=== PATIENT | male | born 1955 | race American Indian/Alaskan Native ===

== ENCOUNTER 2023-02-11 14:06 | Inpatient (IN) ==
[2023-02-11 16:24] LABS: ABS Eosinophils 0.1 10^3/uL (0.0-0.5); ABS Lymphocytes 1.8 10^3/uL (1.0-4.8); ABS Monocytes 0.4 10^3/uL (0.0-1.1); ABS Neutrophils 2.8 10^3/uL (1.5-7.6); ABS Nucleated RBC 0.03 10^3/ul; Eosinophil % 1.1 %; Hematocrit 30.1 % (38-53); Hemoglobin 10.3 g/dL (13.2-16.3); Lymphocyte % 35.5 %; Mean Corpuscular Hemoglobin 31.4 pg (27-33); Mean Corpuscular Hgb Conc 34.1 g/dL (31-36); Mean Platelet Volume 7.8 fL (7.5-11.2); Nucleated Red Blood Cells % 0.5 /100 WBC (0.0-0.4); Platelet Count 139 10^3/uL (150-450); Red Blood Count 3.27 10^6/uL (4.06-5.63); Red Cell Distribution Width 16.1 % (12-17); White Blood Count 4.9 10^3/uL (3.6-10.2)
[2023-02-11 16:28] LABS: Urine Appearance Cloudy; Urine Bilirubin Negative (Negative); Urine Blood Negative (Negative); Urine Color Yellow; Urine Glucose 3+(>=500 mg/dL) (Negative); Urine Ketones Negative (Negative); Urine Nitrite Negative (Negative); Urine Protein Negative (Negative); Urine Specific Gravity 1.021 (1.002-1.030); Urine Urobilinogen Negative (Negative)
[2023-02-11 16:58] LABS: Albumin 3.6 g/dL (3.2-5.2); Albumin/Globulin Ratio 1.1 (1-3); Calcium 9.4 mg/dL (8.6-10.3); Creatinine, Serum 1.51 mg/dL (0.67-1.17); Globulin 3.4 g/dL (2-4); Magnesium 2.3 mg/dL (1.9-2.7); Potassium 4.1 mmol/L (3.5-5.0); Total Bilirubin 0.9 mg/dL (0.2-1.0); eGFR CKD-EPI 49.7 (>60)
[2023-02-11] MEDS ORDERED: Lactated Ringers 1000 ml BAG 1,000 ML IV ONE (19:47)
[2023-02-11] MEDS ORDERED: Iodixanol (CONTRAST) 320 MG/ML 100 ML SDV IV ONE (20:08)
[2023-02-11] MEDS ORDERED: Dextrose 50% Syringe 50 ml 25 GM/50 ML SYRINGE IV PUSH PRN (23:17)
[2023-02-12] MEDS ORDERED: Lactated Ringers 1000 ml BAG 1,000 ML IV ONE (01:55)
[2023-02-12 05:29] LABS: ABS Eosinophils 0.1 10^3/uL (0.0-0.5); ABS Lymphocytes 1.5 10^3/uL (1.0-4.8); ABS Monocytes 0.4 10^3/uL (0.0-1.1); ABS Neutrophils 1.7 10^3/uL (1.5-7.6); ABS Nucleated RBC 0.02 10^3/ul; Eosinophil % 1.5 %; Hematocrit 26.4 % (38-53); Hemoglobin 9.1 g/dL (13.2-16.3); Lymphocyte % 40.4 %; Mean Corpuscular Hemoglobin 31.6 pg (27-33); Mean Corpuscular Hgb Conc 34.4 g/dL (31-36); Mean Corpuscular Volume 91.9 fL (80-97); Mean Platelet Volume 7.7 fL (7.5-11.2); Nucleated Red Blood Cells % 0.5 /100 WBC (0.0-0.4); Platelet Count 121 10^3/uL (150-450); Red Blood Count 2.87 10^6/uL (4.06-5.63); Red Cell Distribution Width 15.8 % (12-17); White Blood Count 3.8 10^3/uL (3.6-10.2)
[2023-02-12 05:43] LABS: Calcium 8.9 mg/dL (8.6-10.3); Creatinine, Serum 1.34 mg/dL (0.67-1.17); Potassium 4.5 mmol/L (3.5-5.0); eGFR CKD-EPI 57.3 (>60)
[2023-02-12] MEDS: Heparin 5000 UNITS/ML 1 mL VIAL SUBCUT SCH ×2 (09:07→20:54)
[2023-02-12 16:54] LABS: C Reactive Protein 30.98 mg/L (<8.01)
[2023-02-12 17:10] LABS: TSH Ultra Thyroid Stim Horm 3.14 mcIU/mL (0.34-5.60)
[2023-02-12] MEDS: NS 0.9% 1000 ml BAG 1,000 ML IV SCH (20:45)
[2023-02-12] MEDS: Insulin GLARGINE 100 un/ml 10 ml VIAL SUBCUT SCH (20:54)
[2023-02-13 05:49] LABS: Hematocrit 30.9 % (38-53); Hemoglobin 10.5 g/dL (13.2-16.3); Mean Corpuscular Hemoglobin 31.4 pg (27-33); Mean Corpuscular Volume 92.2 fL (80-97); Mean Platelet Volume 7.5 fL (7.5-11.2); Platelet Count 137 10^3/uL (150-450); Red Blood Count 3.35 10^6/uL (4.06-5.63); Red Cell Distribution Width 16.1 % (12-17); White Blood Count 3.6 10^3/uL (3.6-10.2)
[2023-02-13 06:08] LABS: Calcium 8.7 mg/dL (8.6-10.3); Creatinine, Serum 1.23 mg/dL (0.67-1.17); Potassium 4.5 mmol/L (3.5-5.0); eGFR CKD-EPI 63.6 (>60)
[2023-02-13 06:59] LABS: Polychromasia 1+
[2023-02-13] MEDS: NS 0.9% 1000 ml BAG 1,000 ML IV SCH ×2 (07:13→17:49)
[2023-02-13 08:06] LABS: ABS Eosinophils 0.1 10^3/uL (0.0-0.5); ABS Lymphocytes 1.4 10^3/uL (1.0-4.8); ABS Monocytes 0.3 10^3/uL (0.0-1.1); ABS Neutrophils 1.8 10^3/uL (1.5-7.6); ABS Nucleated RBC 0.01 10^3/ul; Eosinophil % 1.7 %; Lymphocyte % 39.7 %; Nucleated Red Blood Cells % 0.3 /100 WBC (0.0-0.4)
[2023-02-13] MEDS: Heparin 5000 UNITS/ML 1 mL VIAL SUBCUT SCH ×2 (08:17→20:10)
[2023-02-13] MEDS ORDERED: NS 0.9% 1000 ml BAG 1,000 ML IV SCH (18:43)
[2023-02-13] MEDS: Insulin GLARGINE 100 un/ml 10 ml VIAL SUBCUT SCH (20:10)
[2023-02-14 06:10] LABS: ABS Eosinophils 0.1 10^3/uL (0.0-0.5); ABS Lymphocytes 1.1 10^3/uL (1.0-4.8); ABS Monocytes 0.3 10^3/uL (0.0-1.1); ABS Neutrophils 1.7 10^3/uL (1.5-7.6); ABS Nucleated RBC 0.01 10^3/ul; Hematocrit 26.7 % (38-53); Hemoglobin 9.4 g/dL (13.2-16.3); Lymphocyte % 33.8 %; Mean Corpuscular Hemoglobin 32.2 pg (27-33); Mean Corpuscular Volume 91.8 fL (80-97); Mean Platelet Volume 7.5 fL (7.5-11.2); Nucleated Red Blood Cells % 0.3 /100 WBC (0.0-0.4); Platelet Count 127 10^3/uL (150-450); Red Blood Count 2.91 10^6/uL (4.06-5.63); Red Cell Distribution Width 16.3 % (12-17); White Blood Count 3.2 10^3/uL (3.6-10.2)
[2023-02-14 06:38] LABS: Calcium 8.6 mg/dL (8.6-10.3); Creatinine, Serum 1.1 mg/dL (0.67-1.17); Potassium 4.3 mmol/L (3.5-5.0); eGFR CKD-EPI 72.7 (>60)
[2023-02-14] MEDS: Heparin 5000 UNITS/ML 1 mL VIAL SUBCUT SCH (08:09)
[2023-02-14 10:32] VITALS: BP 137/78
[2023-02-17 01:18] LABS: Anaplasma phagocytophilum Negative (Negative); B. miyamotoi PCR, B Negative (Negative); Babesia divergens/MO-1 Negative (Negative); Babesia ducani Negative (Negative); Ehrlichia chaffeensis Negative (Negative); Ehrlichia ewingii/canis Negative (Negative); Ehrlichia muris eauclairensis Negative (Negative)
[2023-02-17 18:19] LABS: Albumin 2.3 g/dL (3.4-4.7); Flag, M-protein Isotype Negative (Negative); Total Protein 5.5 g/dL (6.3 - 7.9)
[2023-02-18 15:10] LABS: Albumin 2.1 mg/dL; Albumin/Globulin Ratio 0.35; Creatinine, Random, U 54 mg/dL (16 - 326); Gamma Globulin 2.8 mg/dL; Protein,Total, Random Urine 8 mg/dL; Protein/Creatinine Ratio 0.15 mg/mg (<0.18)
[2023-02-18 15:21] LABS: IgG Immunoblot Positive (Negative); IgM Immunoblot Positive (Negative)
== END 2023-02-14 13:18 | disposition home or self-care (01) | DRG 948 ==
LOC: ED 14:06 → EDHOLD 14:06 → SUATTDRO 23:14 → MEDTELE 02-12 13:03 → SUATTDRO 02-13 18:42
PROVIDERS: ADMIT Internal Medicine; ATTEND Hospitalist